=== PATIENT | female | born 1955 | race Caucasian/White ===

== ENCOUNTER 2016-04-13 07:49 | Day surgery (SDC) | payer BC ==
[2016-04-11 15:05] VITALS: BMI 43.8
[2016-04-13 08:27] VITALS: PULSE 83; TEMP 98.1
[2016-04-13] MEDS ORDERED: MIDAZOLAM 2 MG/2 ML VIAL ONE (09:39)
[2016-04-13] MEDS ORDERED: fentaNYL (PF) 50 MCG/ML 2 ML AMP ONE (09:39)
[2016-04-13] MEDS ORDERED: IV FLUID CONTINUATION 450 ML IV ONE (09:45)
[2016-04-13] MEDS: BENZOCAINE SPRAY 100 APPLIC/CAN MUCOUS MEM ONE ×2 (09:46→09:50)
[2016-04-13] MEDS ORDERED: MIDAZOLAM 2 MG/2 ML VIAL IVP ONE (09:52)
[2016-04-13] MEDS ORDERED: SODIUM CHLORIDE 0.9% 1,000 ML IV SCH (10:15)
--- NOTE | 2016-04-13 10:34 | ECHOT ---
DATE OF SERVICE: INDICATION: Mitral regurgitation. Lizet is a 61-year-old lady with history of chronic A. fib that we sent for A. fib ablation. However, Dr. Stern wanted her mitral regurgitation fixed before he did A.fib ablation. The patient has been explained of risks, benefits, and alternatives and was advised to undergo procedure. PROCEDURE NOTE: After obtaining informed consent, transesophageal echocardiogram is performed in the left lateral position using an Omniplane probe. Local and IV sedation were obtained using Xylocaine spray and 2 mg of intravenous Versed. She tolerated the procedure well without any obvious immediate complications. FINDINGS: 1. There is no intracardiac thrombus within the left atrial appendage, left atrium, right atrium, right ventricle or left ventricle. 2. Left atrium appears to be ( ) enlarged. 3. Right atrium and right ventricle seen within normal limits. 4. Left ventricle appears mildly enlarged with diffuse global hypokinesis with moderate to severe LV dysfunction with an ejection fraction of 35%. 5. Mitral valve is anatomically normal. There is moderate to severe central to eccentric jet of mitral regurgitation. 6. Tricuspid valve shows mild tricuspid regurgitation. 7. Aortic valve is free of stenosis or regurgitation. 8. Interatrial septum: There is no evidence of [id number] shunt by color flow Doppler or [id number] shunt by agitated saline contrast study. CONCLUSIONS: 1. Nonischemic cardiomyopathy. 2. No intracardiac thrombus. 3. Enlarged left atrium. 4. Moderate to severe mitral regurgitation.
[2016-04-13 12:12] VITALS: RESP 18
[2016-04-13 12:13] VITALS: BP 124/58
== END 2016-04-13 11:30 | disposition home or self-care (01) ==
LOC: CATHCVL 07:49
PROVIDERS: ATTEND Internal Medicine Cardiovascular Disease
DX: I08.1 Rheumatic disorders of both mitral and tricuspid valves (principal); I48.2 Chronic atrial fibrillation; I42.0 Dilated cardiomyopathy; I11.0 Hypertensive heart disease with heart failure; I50.22 Chronic systolic (congestive) heart failure; Z79.01 Long term (current) use of anticoagulants; Z79.82 Long term (current) use of aspirin; Z79.899 Other long term (current) drug therapy
CPT/HCPCS: 93312; 93320; 93325; J2250